=== PATIENT | female | born 1945 | race Caucasian/White ===

== ENCOUNTER 2019-07-05 16:42 | Emergency (ER) | payer MEDICARE, OTHER, SELFPAY ==
[2019-07-05] VITALS (8 sets, daily range): BP systolic 194–214; BP diastolic 68–109; PULSE 54–73; RESP 9–22; TEMP 36.4; O2SAT 97–99
[2019-07-05 17:27] LABS: Add Manual Diff / Slide Review NO; Basophils Absolute Auto 0 /uL (0-100); Basophils Percent Auto 0.6 % (0-2); Eosinophils Absolute Auto 0 /uL (0-450); Eosinophils Percent Auto 0.8 % (2-4); Hematocrit 40.6 % (36-46); Hemoglobin 13.5 g/dL (12.0-16.0); Lymphocytes Absolute Auto 1600 /uL (1100-4500); Lymphocytes Percent Auto 25.6 % (25-40); Mean Corpuscular HGB Conc 33.2 % (30-36); Mean Corpuscular Hemoglobin 30.2 PG (26-34); Monocytes Absolute Auto 600 /uL (0-900); Monocytes Percent Auto 9.4 % (3-14); Neutrophils Absolute Auto 3900 /uL (1500-7000); Neutrophils Percent Auto 63.6 % (50-75); Platelet Count 284 X10^3/uL (150-400); Red Blood Cell Count 4.46 X10^6/uL (4.0-5.2); Red Cell Distribution Width 14.2 % (11.6-14.8); White Blood Cell Count 6.2 X10^3/uL (4.5-11.0)
[2019-07-05 17:41] LABS: Alanine Aminotransferase 13 IU/L (9-52); Albumin 4.3 g/dL (3.5-5.0); Albumin Globulin Ratio 1.3 (1.0-2.8); Alkaline Phosphatase 59 U/L (38-126); Aspartate Aminotransferase 28 IU/L (14-36); BUN Creatinine Ratio 17.5 (6-22); Bilirubin Total 0.4 mg/dL (0.2-1.3); Blood Urea Nitrogen 14 mg/dL (7-17); Calcium 9.6 mg/dL (8.4-10.2); Carbon Dioxide 29 mmol/L (22-32); Chloride 105 mmol/L (98-107); Estimated Glomerular Filt Rate > 60.0 mL/min (>60); Globulin 3.4 g/dL (1.7-4.1); Glucose 108 mg/dL (80-110); HEMOLYSIS < 15 (0-50); Potassium 4.5 mmol/L (3.4-5.1); Sodium 142 mmol/L (137-145); Total Protein 7.7 g/dL (6.3-8.2)
[2019-07-05 17:52] LABS: Troponin I < 0.012 ng/mL (0.01-0.034)
--- NOTE | 2019-07-05 18:43 | ED_ITS ---
HPI - General Adult General Chief complaint: Hypertension Stated complaint: high blood pressure Time Seen by Provider: 07/05/19 17:21 Source: patient Mode of arrival: Ambulatory Limitations: no limitations History of Present Illness HPI narrative: 74-year-old female nonsmoker with relatively benign medical history presents at the request of EMS for evaluation of an episode of lower leg numbness. She reports a prior history of hypertension and had been encouraged to take medications years ago but never did, instead she took aspirin. Earlier today she was cooking in the kitchen when she felt her legs become numb, she reports that earlier in the day she had a brief episode of some chest pressure but denies any other neurologic symptoms such as other numbness, tingling or weakness. She denies any blurred vision or trouble with speech. She denies any current chest pain or shortness of breath nor any abdominal pain. EMS came to evaluate noted her blood pressure to be in the 200s and recommended transport, she refused and elected to come POV. She denies any ongoing symptoms at her arrival. Onset (ago): hour(s) Severity: moderate Quality: aching Pain Consistency: now resolved Relieving factors: none Exacerbating factors: none Associated symptoms: denies other symptoms Treatments prior to arrival: none Related Data Previous Rx's Medication Instructions Recorded lisinopril 20 mg PO DAILY #30 tab 07/05/19 Review of Systems Constitutional Constitutional: Denies chills, Denies fatigue, Denies fever(s), Denies frequent falls, Denies lethargy and Denies weakness Eyes Eyes: Denies change in vision, Denies eye discharge, Denies irritation and Denies loss of vision ENT Ears, Nose, Mouth, and Throat: Denies change in voice, Denies dizziness, Denies neck pain, Denies sore throat and Denies throat swelling Cardiovascular Cardiovascular: Reports chest pain, Denies irregular heart rhythm, Denies lightheadedness, Denies palpitations, Denies dyspnea, Denies dyspnea on exertion and Denies orthopnea Respiratory Respiratory: Denies cough, Denies dyspnea, Denies dyspnea on exertion and Denies wheezing Gastrointestinal Gastrointestinal: Denies abdominal pain, Denies change in bowel habits, Denies diarrhea, Denies nausea and Denies vomiting Genitourinary Genitourinary: Denies hematuria, Denies flank pain, Denies urinary incontinence and Denies urinary urgency Musculoskeletal Musculoskeletal: Denies back pain, Denies muscle weakness, Denies neck pain, Denies numbness and Reports tingling Integumentary/Breasts Skin/Breast: Denies pruritus, Denies erythema, Denies rash and Denies wounds Neurologic Neurologic: Denies behavioral changes, Denies confusion, Denies dizziness, Den ies frequent falls, Denies loss of vision, Denies numbness, Reports tingling and Denies weakness Psychiatric Psychiatric: Denies anxiety, Denies behavioral changes, Denies confusion, Denies depression, Denies homicidal ideation and Denies suicidal ideation Endocrine Endocrine: Denies fatigue, Denies flushing and Denies palpitations Hematologic/Lymphatic Hematologic/Lymphatic: Denies easy bruising Allergic/Immunologic Allergic/Immunologic: Denies urticaria, Denies throat swelling and Denies wheezing Exam Narrative Exam Narrative: GENERAL: [74] year old patient appears stated age. Well-nouris hed, well-developed patient, in mild distress. HEAD: Atraumatic. Normocephalic. EYES: Pupils equal round and reactive. Extraocular motions intact. No scleral icterus. No injection or drainage. ENT: Nose without bleeding, purulent drainage. Throat without erythema, tonsillar hypertrophy or exudate. Airway patent. NECK: Trachea midline. Non tender CARDIOVASCULAR: Regular rate and rhythm without murmurs, gallops, or rubs. RESPIRATORY: Clear to auscultation. Breath sounds equal bilaterally. No wheezes, rales, or rhonchi. GASTROINTESTINAL: Abdomen soft, non-tender, nondistended. EXTREMITIES: No edema or joint tenderness. BACK: Nontender without deformity or crepitance. No flank tenderness. NEURO: AOx3. SKIN: No rash or erythema of visible areas NIH Stroke Scale 1a. LOC: Patient is alert and keenly responsive (0) 1b. LOC Questions: Patient answers both LOC questions accurately (0) 1c. LOC Commands: Patient performs both tasks correctly (0) 2. Best Gaze: Normal (0) 3. Visual: No visual loss (0) 4. Facial palsy: Normal symmetrical movements (0) 5. Motor arm: No drift (0) 6. Motor leg: No drift (0) 7. Limb ataxia: Absent (0) 8. Sensory: Normal (0) 9. Best language: No aphasia; normal (0) 10. Dysarthria: Normal (0) 11. Extinction and inattention: No abnormality (0) NIHSS: 0 Initial Vital Signs Initial Vital Signs: Vital Signs Temperature 97.6 F 07/05/19 16:55 Pulse Rate 73 07/05/19 16:55 Respiratory Rate 22 07/05/19 16:55 Blood Pressure 194/109 H 07/05/19 16:55 Pulse Oximetry 99 07/05/19 16:55 Course Course Course Narrative: Patient here for multiple hours and completely absent of symptoms at any time. Her blood pressure remained in the 190s for the duration. We had extensive discussion with the patient and though there is no lab evidence of end-organ damage and no ongoing symptoms the fact that her pressure remains elevated and her symptoms earlier were likely related to blood pressures suggest it is reasonable to initiate antihypertensive therapy. Lisinopril chosen given her low heart rate, beta blockers and calcium channel blockers cl early not a good choice at this point in time. Orders Ordered: ED Orders 07/05/19 17:05 EKG-12 Lead Stat 07/05/19 17:21 Complete Blood Count AUTO DIFF Stat Comprehensive Metabolic Panel Stat Free T4 Free Thyroxine Stat Thyroid Stimulating Hormone Stat Troponin I Stat Discontinued Medications Lisinopril (Zestril) 10 mg PO NOW ONE Stop: 07/05/19 18:55 Last Admin: 07/05/19 19:12 Dose: 10 mg Documented by: PRIYA Vital Signs Vital signs: Vital Signs - 8 hr 07/05/19 17:30 07/05/19 18:02 07/05/19 19:01 Pulse Rate 54 L 55 L 60 Respiratory Rate 9 L 10 L 16 Blood Pressure Blood Pressure [Left Arm] 196/76 H 195/79 H 199/75 H Pulse Oximetry 97 07/05/19 19:12 07/05/19 19:30 07/05/19 20:00 Pulse Rate 63 64 54 L Respiratory Rate 15 11 L Blood Pressure 202/81 H Blood Pressure [Left Arm] 198/86 H 214/78 H Pulse Oximetry 07/05/19 20:38 Pulse Rate 61 Respiratory Rate 15 Blood Pressure Blood Pressure [Left Arm] 208/68 H Pulse Oximetry Medical Decision Making Lab Data Result diagrams: 07/05/19 17:21 07/05/19 17:21 Labs: Lab Results 07/05/19 07/05/19 07/05/19 Range/Units 17:21 17:21 17:21 WBC 6.2 (4.5-11.0) X10^3/uL RBC 4.46 (4.0-5.2) X10^6/uL Hgb 13.5 (12.0-16.0) g/dL Hct 40.6 (36-46) % MCV 91.0 (80-100) fL MCH 30.2 (26-34) PG MCHC 33.2 (30-36) % RDW 14.2 (11.6-14.8) % Plt Count 284 (150-400) X10^3/uL Neut % (Auto) 63.6 (50-75) % Lymph % (Auto) 25.6 (25-40) % [place] % (Auto) 9.4 (3-14) % Eos % (Auto) 0.8 L (2-4) % Baso % (Auto) 0.6 (0-2) % Neut # (Auto) 3900 (7661-2509) /uL Lymph # (Auto) 1600 (0907-9705) /uL [place] # (Auto) 600 (0-900) /uL Eos # (Auto) 0 (0-450) /uL Baso # (Auto) 0 (0-100) /uL Sodium 142 (137-145) mmol/L Potassium 4.5 (3.4-5.1) mmol/L Chloride 105 (98-107) mmol/L Carbon Dioxide 29 (22-32) mmol/L BUN 14 (7-17) mg/dL Creatinine 0.80 (0.52-1.04) mg/dL Estimated GFR > 60.0 (>60) mL/min BUN/Creatinine Ratio 17.5 (6-22) Glucose 108 (80-110) mg/dL Calcium 9.6 (8.4-10.2) mg/dL Total Bilirubin 0.4 (0.2-1.3) mg/dL AST 28 (14-36) IU/L ALT 13 (9-52) IU/L Alkaline Phosphatase 59 (38-126) U/L Troponin I < 0.012 (0.01-0.034) ng/mL Total Protein 7.7 (6.3-8.2) g/dL Albumin 4.3 (3.5-5.0) g/dL Globulin 3.4 (1.7-4.1) g/dL Albumin/Globulin Ratio 1.3 (1.0-2.8) TSH 2.61 (0.47-4.68) uIU/mL Urine Dip Bedside Urine Glucose Negative Bedside Urine Bilirubin - Negative Bedside Urine Ketone - Negative Urine Specific Smoot 1.010 Bedside Urine Occult Blood - Negative Bedside Urine pH 6.0 Bedside Urine Protein - Negative Bedside Urine Urobilinogen - Negative Bedside Urine Nitrite - Negative Bedside Urine Leukocytes - Negative Esterase Point of care testing: Urine Dip Bedside Urine Glucose Negative Bedside Urine Bilirubin - Negative Bedside Urine Ketone - Negative Urine Specific Smoot 1.010 Bedside Urine Occult Blood - Negative Bedside Urine pH 6.0 Bedside Urine Protein - Negative Bedside Urine Urobilinogen - Negative Bedside Urine Nitrite - Negative Bedside Urine Leukocytes - Negative Esterase Discharge Plan Departure Patient Disposition: Home Clinical Impression: Hypertension Discharge Date/Time: 07/05/19 21:03 Instructions: DI for High Blood Pressure Activity Restrictions/Additional Instructions: *You have been diagnosed with [hypertension] *What to do: *Take medications as directed *Follow up with your primary care provider in 2-3 days, call for an appointment. Let them know you were seen in the Emergency Department and that we ask that you be seen in follow up *Return to ER if you should have any new, worsening or concerning symptoms, such as [blurred vision, headache, stroke-like symptoms such as numbness, tingling or weakness, chest pain, shortness of breath or other bothersome symptoms] Prescriptions: New lisinopril 20 mg tablet 20 mg PO DAILY Qty: 30 RF: 0
[2019-07-05] MEDS: LISINOPRIL 10 MG TABLET PO (19:12)
[2019-07-05 19:53] LABS: Thyroid Stimulating Hormone 2.61 uIU/mL (0.47-4.68)
[2019-07-06 14:44] LABS: Free T4, Direct Thyroxine 1.18 ng/dL (0.78-2.19)
== END 2019-07-05 21:03 | disposition home or self-care (01) ==
PROVIDERS: Emergency Medicine; Emergency Provider Emergency Medicine
DX: I10 Essential (primary) hypertension (principal)
CPT/HCPCS: 36415; 80053; 81003; 84439; 84443; 84484; 85025; 93005; 99283; 99284

== ENCOUNTER 2019-08-05 14:05 | Emergency (ER) | payer MEDICARE, OTHER, SELFPAY ==
[2019-08-05 14:15] VITALS: BP 186/94; PULSE 87; RESP 94; TEMP 36.8; O2SAT 97; BMI 41.9
--- NOTE | 2019-08-05 14:29 | ED_ITS ---
HPI - Extremity Problem General Chief complaint: Extremity Problem,Nontraumatic Stated complaint: Issue with legs going numb Time Seen by Provider: 08/05/19 14:10 Source: patient Mode of arrival: Ambulatory Limitations: no limitations History of Present Illness HPI Narrative: 74F nonsmoker with history of HTN presents with her and a chief complaint of of 5 minutes episode of bilateral lower extremity numbness. She denies any weakness nor pain and states she can still feel her feet. She was not dizzy nor lightheaded. She denies any other neurologic symptoms such as blurred vision, trouble with speech or difficulty with ambulation or ataxia. She had a similar episode a few weeks ago at which point her blood pressure was noted to be quite high, she was initiated on lisinopril and in followup started on amlodipine. Patient has had no other similar episodes. She was standing in the kitchen when this happened and it improved without any specific therapies or interventions MD Complaint: other Onset (ago): hour(s) Pain Consistency: now resolved Location: left, right and lower extremity Radiation: none Relieving factors: nothing Exacerbating factors: nothing Related Data Previous Rx's Medication Instructions Recorded lisinopril 20 mg PO DAILY #30 tab 07/05/19 Allergies Allergy/AdvReac Type Severity Reaction Status Date / Time Penicillins Allergy Verified 08/05/19 14:13 Review of Systems Constitutional Constitutional: Denies chills, Denies fatigue, Denies fever(s), Denies frequent falls, Denies lethargy and Denies weakness Eyes Eyes: Denies change in vision, Denies eye discharge, Denies irritation and Denies loss of vision ENT Ears, Nose, Mouth, and Throat: Denies change in voice, Denies dizziness, Denies neck pain, Denies sore throat and Denies throat swelling Cardiovascular Cardiovascular: Denies chest pain, Denies irregular heart rhythm, Denies l ightheadedness, Denies palpitations, Denies dyspnea, Denies dyspnea on exertion and Denies orthopnea Respiratory Respiratory: Denies cough, Denies dyspnea, Denies dyspnea on exertion and Denies wheezing Gastrointestinal Gastrointestinal: Denies abdominal pain, Denies change in bowel habits, Denies diarrhea, Denies nausea and Denies vomiting Genitourinary Genitourinary: Denies hematuria, Denies flank pain, Denies urinary incontinence and Denies urinary urgency Musculoskeletal Musculoskeletal: Denies back pain, Denies muscle weakness, Denies neck pain, Denies numbness and Denies tingling Integumentary/Breasts Skin/Breast: Denies pruritus, Denies erythema, Denies rash and Denies wounds Neurologic Neurologic: Denies behavioral changes, Denies confusion, Denies dizziness, Denies frequent falls, Denies loss of vision, Denies numbness, Denies tingling, Reports paresthesias and Denies weakness Psychiatric Psychiatric: Denies anxiety, Denies behavioral changes, Denies confusion, Denies depression, Denies homicidal ideation and Denies suicidal ideation Endocrine Endocrine: Denies fatigue, Denies flushing and Denies palpitations Hematologic/Lymphatic Hematologic/Lymphatic: Denies easy bruising Allergic/Immunologic Allergic/Immunologic: Denies urticaria, Denies throat swelling and Denies wheezing Patient History Social History Smoking Status: Never smoker alcohol intake frequency: holidays/special occasions only Substance Use Type: does not use Exam Narrative Exam Narrative: GENERAL: [74] year old patient appears stated age. Well- nourished, well-developed patient, in mild distress. HEAD: Atraumatic. Normocephalic. EYES: Pupils equal round and reactive. Extraocular motions intact. No scleral icterus. No injection or drainage. ENT: Nose without bleeding, purulent drainage. Throat without erythema, tonsillar hypertrophy or exudate. Airway patent. NECK: Trachea midline. Non tender CARDIOVASCULAR: Regular rate and rhythm without murmurs, gallops, or rubs. RESPIRATORY: Clear to auscultation. Breath sounds equal bilaterally. No wheezes, rales, or rhonchi. GASTROINTESTINAL: Abdomen soft, non-tender, nondistended. EXTREMITIES: No edema or joint tenderness. BACK: Nontender without deformity or crepitance. No flank tenderness. NEURO: AOx3. SKIN: No rash or erythema of visible areas NIH Stroke Scale 1a. LOC: Patient is alert and keenly responsive (0) 1b. LOC Questions: Patient answers both LOC questions accurately (0) 1c. LOC Commands: Patient performs both tasks correctly (0) 2. Best Gaze: Normal (0) 3. Visual: No visual loss (0) 4. Facial palsy: Normal symmetrical movements (0) 5. Motor arm: No drift (0) 6. Motor leg: No drift (0) 7. Limb ataxia: Absent (0) 8. Sensory: Normal (0) 9. Best language: No aphasia; normal (0) 10. Dysarthria: Normal (0) 11. Extinction and inattention: No abnormality (0) NIHSS: 0 Initial Vital Signs Initial Vital Signs: Vital Signs Temperature 98.3 F 08/05/19 14:15 Pulse Rate 87 08/05/19 14:15 Respiratory Rate 94 H 08/05/19 14:15 Blood Pressure 186/94 H 08/05/19 14:15 Pulse Oximetry 97 08/05/19 14:15 Course Orders Ordered: ED Orders 08/05/19 14:42 CT head/brain wo con Stat 08/05/19 15:22 Basic Metabolic Panel Stat Complete Blood Count AUTO DIFF Stat Magnesium Stat Troponin & CK Cardiac Panel Stat Vital Signs Vital signs: Vital Signs - 8 hr 08/05/19 14:15 08/05/19 14:44 Temperature 98.3 F Pulse Rate 87 65 Respiratory Rate 94 H 16 Blood Pressure 186/94 H Blood Pressure [Right Arm] 148/61 H Pulse Oximetry 97 98 MDM - Extremity (Nontraumatic) Lab Data Result diagrams: 08/05/19 15:22 08/05/19 15:22 Labs: Lab Results 08/05/19 08/05/19 Range/Units 15:22 15:22 WBC 5.7 (4.5-11.0) X10^3/uL RBC 4.39 (4.0-5.2) X10^6/uL Hgb 13.2 (12.0-16.0) g/dL Hct 39.8 (36-46) % MCV 90.6 (80-100) fL MCH 30.2 (26-34) PG MCHC 33.3 (30-36) % RDW 14.2 (11.6-14.8) % Plt Count 238 (150-400) X10^3/uL Neut % (Auto) 59.6 (50-75) % Lymph % (Auto) 27.6 (25-40) % [place] % (Auto) 10.9 (3-14) % Eos % (Auto) 1.1 L (2-4) % Baso % (Auto) 0.8 (0-2) % Neut # (Auto) 3400 (9242-9655) /uL Lymph # (Auto) 1600 (3536-2320) /uL [place] # (Auto) 600 (0-900) /uL Eos # (Auto) 100 (0-450) /uL Baso # (Auto) 0 (0-100) /uL Sodium 142 (137-145) mmol/L Potassium 4.6 (3.4-5.1) mmol/L Chloride 108 H (98-107) mmol/L Carbon Dioxide 29 (22-32) mmol/L BUN 13 (7-17) mg/dL Creatinine 0.90 (0.52-1.04) mg/dL Estimated GFR > 60.0 (>60) mL/min BUN/Creatinine Ratio 14.4 (6-22) Glucose 93 (80-110) mg/dL Calcium 9.1 (8.4-10.2) mg/dL Magnesium 2.1 (1.6-2.3) mg/dL Total Creatine Kinase 36 (30-135) U/L CK-MB (CK-2) TNP CK-MB (CK-2) Rel Index TNP Troponin I < 0.012 (0.01-0.034) ng/mL Imaging Data CT scan - head: Radiologist's impression: [address] [address] [address] Scan Report Signed Patient: Anastasia Sharma LMR#: [id number] : 6Acct:[id number] Age/Sex: 74 / FDate of Service: 08/05/19 Loc: ED Accession Number: [id number] Procedure: CT head/brain wo con Ordering Provider: Leighton Laird D.O. PROCEDURE: CT HEAD/BRAIN WO CON INDICATIONS: episode of leg numbness, resolved TECHNIQUE: Noncontrast 4.5 mm thick angled axial sections acquired from the foramen magnum to the vertex, with coronal and sagittal reformats. For radiation dose reduction, the following was used: automated exposure control, adjustment of mA and/or kV according to patient size. COMPARISON: None. FINDINGS: Image quality: Diagnostic. CSF spaces: Basal cisterns are patent. No extra-axial fluid collections. Ventricles are normal in size and shape. Brain: No midline shift. No intracranial masses or hemorrhage. Snyder-white matter interface is normal. A somewhat unusual appearance involving the right basal ganglia, particular the caudate nucleus, which may be related to previous area of ischemia. Skull and face: Calvarium and visualized facial bones are intact, without suspicious lesions. Sinuses: Visualized sinuses and mastoids are clear. IMPRESSION: No acute intracranial hemorrhage. Dictated by: Toi Ricci M.D. on 08/05/2019 at 14:03 Approved by: Toi Ricci M.D. on 08/05/2019 at 14:05 [facility] Narrative Medical decision making narrative: 74F hypertensive female presents with bilateral lower extremity tingling which spares her feet. She denies any focal findings nor any other neurologic findings. Her symptoms improved after about 5 minutes. She had a thorough evaluation and multiple etiologies including electrolyte abnormality, cardiac arrhythmia, stroke all considered but thought less likely given the lack of findings on our evaluation. We did discuss that continuing to follow-up with her primary care provider to pursue the MRI that they had already spoken about seems very realistic as this could shed light on her as yet undiagnosed neurologic problem. She has been given return precautions and had questions answered to her apparent satisfaction Discharge Plan Departure Patient Disposition: Home Clinical Impression: Paresthesia of bilateral legs Discharge Date/Time: 08/05/19 16:03 Activity Restrictions/Additional Instructions: *You have been diagnosed with [acute episode of bilateral lower extremity paresthesia] *What to do: * continue to take medications as directed *Follow up with your primary care provider in 2-3 days, call for an appointment. Let them know you were seen in the Emergency Department and that we ask that you be seen in follow up *Return to ER if you should have any new, worsening or concerning symptoms Prescriptions: No Action lisinopril 20 mg tablet 20 mg PO DAILY Qty: 30 RF: 0 Referrals: Coco Barroso [Primary Care Provider] -
--- NOTE | 2019-08-05 14:42 | DI.CT.S_ITS ---
PROCEDURE: CT HEAD/BRAIN WO CON INDICATIONS: episode of leg numbness, resolved TECHNIQUE: Noncontrast 4.5 mm thick angled axial sections acquired from the foramen magnum to the vertex, with coronal and sagittal reformats. For radiation dose reduction, the following was used: automated exposure control, adjustment of mA and/or kV according to patient size. COMPARISON: None. FINDINGS: Image quality: Diagnostic. CSF spaces: Basal cisterns are patent. No extra-axial fluid collections. Ventricles are normal in size and shape. Brain: No midline shift. No intracranial masses or hemorrhage. Snyder-white matter interface is normal. A somewhat unusual appearance involving the right basal ganglia, particular the caudate nucleus, which may be related to previous area of ischemia. Skull and face: Calvarium and visualized facial bones are intact, without suspicious lesions. Sinuses: Visualized sinuses and mastoids are clear. IMPRESSION: No acute intracranial hemorrhage. Dictated by: Toi Ricci M.D. on 08/05/2019 at 14:03 Approved by: Toi Ricci M.D. on 08/05/2019 at 14:05
--- NOTE | 2019-08-05 14:42 | PC.NURSE ---
pt reports, bilateral lower legs with numbness, lasting couple of minutes. no other tx. pt treated with hypertensions. resolved symptoms on arrival. spouse at bs. neuro [facility] 0
[2019-08-05 14:44] VITALS: BP 148/61; PULSE 65; RESP 16; O2SAT 98
[2019-08-05 15:31] LABS: Add Manual Diff / Slide Review NO; Basophils Absolute Auto 0 /uL (0-100); Basophils Percent Auto 0.8 % (0-2); Eosinophils Absolute Auto 100 /uL (0-450); Eosinophils Percent Auto 1.1 % (2-4); Hematocrit 39.8 % (36-46); Hemoglobin 13.2 g/dL (12.0-16.0); Lymphocytes Absolute Auto 1600 /uL (1100-4500); Lymphocytes Percent Auto 27.6 % (25-40); Mean Corpuscular HGB Conc 33.3 % (30-36); Mean Corpuscular Hemoglobin 30.2 PG (26-34); Mean Corpuscular Volume 90.6 fL (80-100); Monocytes Absolute Auto 600 /uL (0-900); Monocytes Percent Auto 10.9 % (3-14); Neutrophils Absolute Auto 3400 /uL (1500-7000); Neutrophils Percent Auto 59.6 % (50-75); Platelet Count 238 X10^3/uL (150-400); Red Blood Cell Count 4.39 X10^6/uL (4.0-5.2); Red Cell Distribution Width 14.2 % (11.6-14.8); White Blood Cell Count 5.7 X10^3/uL (4.5-11.0)
[2019-08-05 15:40] LABS: BUN Creatinine Ratio 14.4 (6-22); Blood Urea Nitrogen 13 mg/dL (7-17); Calcium 9.1 mg/dL (8.4-10.2); Carbon Dioxide 29 mmol/L (22-32); Chloride 108 mmol/L (98-107); Creatine Kinase 36 U/L (30-135); Estimated Glomerular Filt Rate > 60.0 mL/min (>60); Glucose 93 mg/dL (80-110); HEMOLYSIS < 15 (0-50); Magnesium 2.1 mg/dL (1.6-2.3); Potassium 4.6 mmol/L (3.4-5.1); Sodium 142 mmol/L (137-145)
[2019-08-05 15:51] LABS: Troponin I < 0.012 ng/mL (0.01-0.034)
== END 2019-08-05 16:03 | disposition home or self-care (01) ==
PROVIDERS: Emergency Provider Emergency Medicine; PCP Internal Medicine
DX: R20.2 Paresthesia of skin (principal); R20.0 Anesthesia of skin; I10 Essential (primary) hypertension
CPT/HCPCS: 36415; 70450; 80048; 82550; 83735; 84484; 85025; 99282; 99284

== ENCOUNTER → 2019-09-01 06:18 | Outpatient (CLI) | payer MEDICARE, OTHER, SELFPAY ==
--- NOTE | 2019-09-01 | DI.MRI.S_ITS ---
PROCEDURE: MR LUMBAR SPINE WO/W CON INDICATIONS: Paresthesia of skin TECHNIQUE: Noncontrast sagittal T1 spin echo and T2 fast spin echo, sagittal STIR, axial T1 and T2 fast spin echo through the lumbar spine. In cases with scoliosis, additional coronal T2 fast spin echo may be performed. After the administration of contrast, sagittal and axial T1 spin echo with fat saturation through the lumbar spine. COMPARISON: None. FINDINGS: Image quality: Excellent. Alignment and curvature: There is a transitional element at S1. The numbering system for the current examination is as denoted on the montage panel. Correlation with plain films for numbering purposes prior to lumbar spinal intervention is recommended. Marrow: Marrow is of normal overall signal. No acute vertebral body compression fractures. No suspicious marrow enhancement. Spinal cord: Conus medullaris terminates at the mid L2 level. Visualized spinal cord demonstrates normal signal, without suspicious enhancement. Paraspinous soft tissues: No paravertebral masses or abnormal enhancement. L1-L2: Normal appearance. L2-L3: Mild disc desiccation. Mild diffuse disc bulge. Minimal canal stenosis. No foraminal stenosis. L3-L4: Mild disc desiccation. Mild diffuse disc bulge. Mild facet and ligamentum flavum hypertrophy. Mild canal stenosis. No foraminal stenosis. L4-L5: Mild disc desiccation. Mild diffuse disc bulge. Minimal canal stenosis. Mild bilateral foraminal stenosis. L5-S1: Mild disc desiccation. Mild diffuse disc bulge. Mild bilateral facet hypertrophy. Mild canal stenosis. Moderate bilateral subarticular foraminal stenosis. IMPRESSION: 1. 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 Plain films of the lumbar spine are recommended for confirmation, prior to any lumbar spinal intervention. 2. Multilevel degenerative disc and facet disease, as well as ligamentum flavum hypertrophy and epidural lipomatosis. 3. Mild multilevel canal stenoses. 4. Multilevel foraminal stenoses, worst at L5-S1 bilaterally where there are moderate foraminal stenoses present. Dictated by: Keenan Cummings M.D. on 09/01/2019 at 9:33 Approved by: Keenan Cummings M.D. on 09/01/2019 at 9:37
== END ==
PROVIDERS: PCP Internal Medicine; Visit Provider Internal Medicine
DX: M51.36 Other intervertebral disc degeneration, lumbar region (principal); M48.061 Spinal stenosis, lumbar region without neurogenic claudication; M48.07 Spinal stenosis, lumbosacral region; E88.2 Lipomatosis, not elsewhere classified; R20.2 Paresthesia of skin
CPT/HCPCS: 72158; A9579

== ENCOUNTER → 2023-07-29 14:28 | Outpatient (CLI) | payer MEDICARE, OTHER, SELFPAY ==
--- NOTE | 2023-07-29 14:31 | DI.RAD.S_ITS ---
Bone Density Report Name: CAREY HINDS Age: 78 Sex: Female Ethnicity: White Date of : 1945 Indication: postmenopausal; screening for osteoporosis; Referring Provider: DARNELL RENEE D.O. Study: Bone densitometry was performed. Exam Date: July 29, 2023 Accession number: [id number] Bone Density: Region BMD T-score Z-score Classification AP Spine(L1-L4) 1.096 0.4 3.0 Normal Femoral Neck (Left) 0.787 -0.6 1.6 Normal Total Hip (Left) 1.024 0.7 2.6 Normal Femoral Neck (Right) 0.759 -0.8 1.4 Normal Total Hip (Right) 0.977 0.3 2.2 Normal Total Hip Mean 1.001 0.5 2.4 Normal World Health Organization criteria for BMD impression classify patients as: Normal (T-score at or above -1.0), Osteopenia (T-score between -1.0 and -2.5), or Osteoporosis (T-score at or below -2.5). 10-year Fracture Risk: FRAX not reported because: All T-scores for Spine Total, Hip Total, Femoral Neck at or above -1.0 Impression: The patient has normal bone mass. Discussion: BONE DENSITY IS ABOVE THE MINIMUM DESIRABLE LEVEL AT ALL SKELETAL SITES TESTED. This patient's bone mineral density is above the minimum desirable level (T-score -1.0 or better) at all sites measured. The patient should follow a healthful lifestyle (good nutrition with adequate calcium and vitamin D, and appropriate weight-bearing exercise). Follow-Up: Consider repeating this study in 5 years or sooner if there is some new clinical indication. Reported by: GUNNER PLASCENCIA M.D. on 07/29/2023 3:08:00 PM.
== END ==
PROVIDERS: PCP Family Medicine; Referring Provider Family Medicine; Visit Provider Family Medicine
DX: Z78.0 Asymptomatic menopausal state (principal)
CPT/HCPCS: 77080

== ENCOUNTER 2023-12-02 02:21 | Emergency (ER) | payer MEDICARE, OTHER, SELFPAY ==
[2023-12-02 02:28] VITALS: BP 239/105; PULSE 77; RESP 18; O2SAT 97
[2023-12-02 02:33] VITALS: BP 239/105; PULSE 76; RESP 18; TEMP 37; O2SAT 96; BMI 37.5
--- NOTE | 2023-12-02 02:38 | ED.EXTPRO ---
HPI - Extremity Problem General Chief complaint: Extremity Problem,Nontraumatic Stated complaint: RT ARM PAIN Time Seen by Provider: 12/02/23 02:23 Source: patient and family Mode of arrival: Wheelchair History of Present Illness HPI Narrative: 78-year-old female presents by private vehicle from home for approximately 8 hours progressive atraumatic right shoulder pain. Patient states that she needs the pain around 6:00 p.m. and it has gradually worsened. She was unable to find a comfortable position or sleep due to the pain and decided to present for evaluation. Denies known accident, injury, trauma to the affected joint. Related Data Previous Rx's Medication Instructions Recorded lisinopril 20 mg tablet 20 mg PO DAILY #30 tabs 07/05/19 Allergies Allergy/AdvReac Type Severity Reaction Status Date / Time Penicillins Allergy Verified 08/05/19 14:13 Review of Systems Review of Systems Narrative: Negative except as noted above Patient History Social History Smoking Status: Never smoker Smoking Status: Never smoker alcohol intake frequency: holidays/special occasions only Substance Use Type: does not use Exam Initial Vital Signs Initial Vital Signs: Vital Signs Temperature 98.6 F 12/02/23 02:33 Pulse Rate 76 12/02/23 02:33 Respiratory Rate 18 12/02/23 02:33 Blood Pressure 239/105 H 12/02/23 02:33 Pulse Oximetry 96 12/02/23 02:33 Oxygen Delivery Method Room Air 12/02/23 02:33 Const: Awake, alert, no acute distress MSK: Atraumatic, ROM limited due to pain, tenderness along AC joint, posterior shoulder Skin: Warm, Dry, intact, no rashes Neuro: AO x3, CN II-XII grossly intact, moves all extremities Course Orders Ordered: ED Orders 12/02/23 02:40 XR shoulder RT min 2V Stat Discontinued Medications Hydrocodone Bitart/Acetaminophen (Hydrocodone/Acet 5/325 Tablet) 1 tab PO NOW ONE Stop: 12/02/23 02:38 Last Admin: 12/02/23 02:51 Dose: 1 tab Documented By: CEZAR Lidocaine (Lidocaine 5% Patch) 1 each TOP NOW ONE Stop: 12/02/23 02:38 Last Admin: 12/02/23 02:50 Dose: 1 each Documented By: CEZAR Methocarbamol (Methocarbamol 500 Mg Tablet) 750 mg PO NOW ONE Stop: 12/02/23 02:38 Last Admin: 12/02/23 02:50 Dose: 750 mg Documented By: OW Vital Signs Vital signs: Vital Signs - 8 hr 12/02/23 02:33 Temperature 98.6 F Pulse Rate 76 Respiratory Rate 18 Blood Pressure 239/105 H Pulse Oximetry 96 Oxygen Delivery Method Room Air MDM - Extremity (Nontraumatic) Differential Diagnosis Differential diagnosis: Likely herpes zoster, gout and cellulitis MDM Narrative Medical decision making narrative: Atraumatic right shoulder joint pain. No deformity, shoulders particularly painful over the anterior portion of the shoulder. Suspect rotator cuff tendinopathy. Range of motion limited due to pain. X-rays negative for acute findings. Mild degenerative change noted without lesions, fracture, dislocation. Patient placed in sling for comfort, advised that she may take anti-inflammatories and Tylenol as needed for pain or discomfort. Recommended application of ice as well as lidocaine or menthol patches for comfort. Orthopedic referral provided. Discharge Plan Departure Patient Disposition: Home Clinical Impression: Acute shoulder pain Qualifiers: Laterality: right Qualified Code(s): M25.511 - Pain in right shoulder Instructions: DI for Shoulder Tendinopathy Activity Restrictions/Additional Instructions: You may take Tylenol and ibuprofen as needed for pain. Take ibuprofen with food to avoid irritating your stomach. You may wear the sling as needed for comfort. Follow up with orthopedic surgery if you continue to experience symptoms. Prescriptions: No Action lisinopril 20 mg tablet 20 mg PO DAILY Qty: 30 0RF Referrals: Roque Will DO [Primary Care Provider] - Chano Burton MD [Physician] - Stand Alone Forms: Patient Portal/API
--- NOTE | 2023-12-02 02:40 | DI.RAD.S_ITS ---
PROCEDURE: XR SHOULDER RT MIN 2V INDICATIONS: R SHOULDER PAIN, NO INJURY TECHNIQUE: 3 views of the shoulder were acquired. COMPARISON: None. FINDINGS: Bones: No fractures or dislocations. No suspicious bony lesions. Visualized ribs appear intact. Acromioclavicular joint space narrowing with osteophytosis. Soft tissues: No suspicious soft tissue calcifications. IMPRESSION: No acute bony abnormality. Dictated by: Esequiel Chiu M.D. on 12/02/2023 at 8:22 Approved by: Esequiel Chiu M.D. on 12/02/2023 at 8:23
[2023-12-02] MEDS: methocarbamoL 500 MG TABLET 750 MG PO (02:50)
[2023-12-02] MEDS: LIDOCAINE 5% PATCH 1 EACH TOP (02:50)
[2023-12-02] MEDS: HYDROCODONE/ACET 5/325 TABLET 1 TAB PO (02:51)
[2023-12-02 03:19] VITALS: BP 229/91; PULSE 76; RESP 18; O2SAT 99
[2023-12-02] MEDS: TRAMADOL 50 MG TABLET PO (03:59)
[2023-12-02] MEDS: TRAMADOL 50 MG PREPACK 1 BOTTLE MISC (03:59)
[2023-12-02 04:01] VITALS: BP 212/91; PULSE 76; RESP 20; O2SAT 98
== END 2023-12-02 04:28 | disposition home or self-care (01) ==
PROVIDERS: Emergency Provider Emergency Medicine; PCP Family Medicine
DX: M25.511 Pain in right shoulder (principal)
CPT/HCPCS: 73030; 99283

== ENCOUNTER → 2023-12-22 13:19 | Outpatient (CLI) | payer MEDICARE, OTHER, SELFPAY ==
--- NOTE | 2023-12-22 13:24 | DI.MRI.S_ITS ---
PROCEDURE: MR SHOULDER RT WO CON INDICATIONS: Pain in right shoulder TECHNIQUE: Noncontrast oblique coronal T2 fast spin echo with fat saturation, oblique sagittal T1 spin echo and T2 fast spin echo with fat saturation, axial T1 spin echo and T2 fast spin echo with fat saturation through the shoulder. COMPARISON: None. FINDINGS: Image quality: Excellent. Rotator cuff: Low to moderate grade articular and bursal surface partial thickness tear involving distal supraspinatus at its insertion on the humeral head is seen extending to musculotendinous junction. Distal infraspinatus tendinosis is seen. The subscapularis tendon is intact. No full-thickness rotator cuff tendon rupture. Sagittal images demonstrate mild to moderate supraspinatus muscle atrophy. Bones and bursae: No bone marrow contusions or fractures. Mild to moderate acromioclavicular joint osteoarthritic changes are seen with joint space narrowing and downward osteophyte formation depressing the musculotendinous junction of supraspinatus. The acromion demonstrates conventional anatomy, without an os acromiale. There is moderate joint effusion and subacromial subdeltoid bursal fluid, no gross loose bodies. Capsule and soft tissues: There is fraying of superior anterior labrum and T2 hyperintense signal at 12 to 2 o'clock position concerning for superior anterior labral tear. There is also suggestion of anterior-inferior labral tear with adjacent 5-6 millimeter perilabral cyst at 5 to 6 o'clock position. The long head of the biceps tendon demonstrates normal location and morphology. The rotator interval appears normal, without fibrosis. The coracohumeral ligament is normal in thickness. IMPRESSION: 1. Low to moderate grade articular and bursal surface partial thickness tear involving distal supraspinatus extending to musculotendinous junction. Distal infraspinatus tendinosis. No full-thickness rotator cuff tendon rupture. Mild to moderate supraspinatus muscle atrophy. 2. Tzri-bt-pjowpira acromioclavicular joint osteoarthritis. No fracture or dislocation. Moderate joint effusion and subacromial subdeltoid bursal fluid. No gross loose bodies. 3. Suggestion of superior anterior labral tear at 12 to 2 o'clock position and anterior-inferior labral tear at 5 to 6 o'clock position with adjacent 5-6 mm perilabral cysts. Dictated by: Michael Canales M.D. on 12/23/2023 at 10:41 Approved by: Michael Canales M.D. on 12/23/2023 at 10:45
[2023-12-22 14:27] LABS: Add Manual Diff / Slide Review NO; Basophils Absolute Auto 0 /uL (0-100); Basophils Percent Auto 0.5 % (0-2); Eosinophils Absolute Auto 0 /uL (0-450); Eosinophils Percent Auto 0.5 % (2-4); Hematocrit 38.5 % (36-46); Lymphocytes Absolute Auto 1600 /uL (1100-4500); Lymphocytes Percent Auto 31.6 % (25-40); Mean Corpuscular HGB Conc 33.7 % (30-36); Mean Corpuscular Hemoglobin 30.1 PG (26-34); Mean Corpuscular Volume 89.5 fL (80-100); Monocytes Absolute Auto 700 /uL (0-900); Monocytes Percent Auto 13.3 % (3-14); Neutrophils Absolute Auto 2800 /uL (1500-7000); Neutrophils Percent Auto 54.1 % (50-75); Platelet Count 324 X10^3/uL (150-400); Red Blood Cell Count 4.31 X10^6/uL (4.0-5.2); Red Cell Distribution Width 13.8 % (11.6-14.8); White Blood Cell Count 5.2 X10^3/uL (4.5-11.0)
[2023-12-22 14:34] LABS: Hemoglobin A1C% w Est Avg Glu 5.7 % (4.0-6.0)
[2023-12-22 14:40] LABS: BUN Creatinine Ratio 22.1 (6-22); Blood Urea Nitrogen 19 mg/dL (7-17); Calcium 9.1 mg/dL (8.4-10.2); Carbon Dioxide 26 mmol/L (22-32); Chloride 96 mmol/L (98-107); Estimated Glomerular Filt Rate > 60 mL/min (>60); Glucose 96 mg/dL (80-110); HEMOLYSIS < 15 (0-50); Potassium 3.7 mmol/L (3.4-5.1); Sodium 129 mmol/L (137-145)
[2023-12-22 15:35] LABS: Appearance Urine UA CLEAR; Bilirubin Urine UA NEGATIVE (NEGATIVE); Color Urine UA YELLOW; Glucose Urine UA NEGATIVE (Negative); Ketones Urine UA NEGATIVE (NEGATIVE); Leukocyte Esterase Urine UA TRACE (NEGATIVE); Nitrite Urine UA NEGATIVE (Negative); Occult Blood Urine UA NEGATIVE (Negative); Protein Urine UA NEGATIVE (Negative); Urobilinogen Urine UA 0.2 E.U./dL (0.2)
[2023-12-22 15:36] LABS: pH Urine UA 5.5 (4.5-8.0)
[2023-12-22 15:41] LABS: Bacteria Urine Occasional (0-1); Culture Indicated Urine Specimen Cultured; Mucus Urine 1+ (Negative); RBC Urine 0-1/HPF (0-5/HPF); Squamous Epithelial Cell Urine 10-30 /HPF (0-5/HPF); Urine Volume 10mL (spun); WBC Urine 1-5/HPF (0-5/HPF)
== END ==
PROVIDERS: Orthopaedic Surgery; PCP Family Medicine; Referring Provider Family Medicine; Visit Provider Family Medicine
DX: Z01.818 Encounter for other preprocedural examination (principal); M62.511 Muscle wasting and atrophy, not elsewhere classified, right shoulder; Z01.812 Encounter for preprocedural laboratory examination; M19.011 Primary osteoarthritis, right shoulder; S46.011A Strain of muscle(s) and tendon(s) of the rotator cuff of right shoulder, initial encounter; M25.511 Pain in right shoulder; R73.9 Hyperglycemia, unspecified; N39.0 Urinary tract infection, site not specified; W19.XXXA Unspecified fall, initial encounter
CPT/HCPCS: 36415; 73221; 80048; 81001; 83036; 85025; 87086; 93005; 93010

== ENCOUNTER 2024-02-29 08:51 | Day surgery (SDC) | payer MEDICARE, OTHER, SELFPAY ==
[2024-02-21 12:50] VITALS: BMI 37.5
[2024-02-29] VITALS (12 sets, daily range): BP systolic 124–162; BP diastolic 66–80; PULSE 54–71; RESP 11–18; TEMP 36.1–37; O2SAT 95–100; BMI 37.9
--- NOTE | 2024-02-29 | DI.RAD.S_ITS ---
PROCEDURE: XR HIP W PEL IF DONE RT 2V INDICATIONS: POST OP RIGHT HIP TECHNIQUE: AP pelvis and lateral view of the hip acquired. COMPARISON: [facility], [place], XR PELVIS 1-2V, 02/29/2024, 12:00. FINDINGS: Bones: Patient is status post right total hip arthroplasty, with hardware components in expected positions. The hip joint appears congruent. The visualized bony structures appear intact. Soft tissues: Overlying postoperative changes are noted. No suspicious soft tissue densities. IMPRESSION: Expected post-operative appearance of a hip arthroplasty. Approved by: César Olmedo M.D. on 02/29/2024 at 14:18
--- NOTE | 2024-02-29 06:00 | DI.RAD.S_ITS ---
PROCEDURE: XR PELVIS 1-2V INDICATIONS: right RIVERA TECHNIQUE: Intra-operative view of the pelvis and hip acquired. COMPARISON: None. FINDINGS: Bones: Intraoperative devices prior to placement of arthroplasty prostheses are in expected positions. No fractures or suspicious bony lesions. Soft tissues: Overlying surgical retractors are present, along with other intraoperative changes. IMPRESSION: Expected position of the intraoperative devices. Dictated by: Esequiel Chiu M.D. on 02/29/2024 at 13:59 Approved by: Esequiel Chiu M.D. on 02/29/2024 at 13:59
[2024-02-29] MEDS: ACETAMINOPHEN 325 MG TABLET 975 MG PO (10:09)
[2024-02-29] MEDS: CELECOXIB 200 MG CAPSULE PO (10:09)
[2024-02-29] MEDS: LACTATED RINGERS 1,000 ML 42 ML IV (10:10)
[2024-02-29] MEDS: VANCOMYCIN 1,000 MG/200 ML PIGGYBACK 200 MG IV (10:18)
--- NOTE | 2024-02-29 10:45 | PM.PREOP ---
Pre-operative Note Interval Note History & Physical reviewed/Exam performed by Physician: Yes Changes to H&P: No
--- NOTE | 2024-02-29 10:46 | PM.OP.1 ---
Operative Date/Time/Diagnoses Date of procedure: 02/29/24 Time of procedure: 11:00 Pre-op diagnosis: Severe right hip OA Post-op diagnosis: same Procedure & Clinicians Procedure: Right total hip arthroplasty, posterior approach Same procedure as scheduled: Yes Indications: The patient has had progressively worsening right hip pain with radiographic changes consistent with arthritis. Non-operative management has failed and the patient has requested total hip replacement. The risks, benefits and alternatives to surgery were discussed with the patient prior to proceeding. Risks discussed included, but were not limited to, failure to relieve pain, leg length discrepancy, dislocation, stiffness, infection, nerve damage, deep venous thrombosis, pulmonary embolism, stroke, coma, heart attack, permanent paralysis and , as well as the potential need for eventual revision of the prosthetic. 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 The patient received pre-operative antibiotics and was taken to the operating room and placed on the operative table in the left lateral decubitus position after satisfactory anesthesia. A methods time analyst out was performed. The right leg was prepared from the ankle to the iliac crest with ChloroPrep in the usual fashion and draped through sterile drapes. A PA was used during the procedure and was essential for intraoperative retraction and safe implantation of the components. The hip was approached through an approximately 20 cm incision centered over the greater trochanter and curving gently posteriorly as it went proximally. This was carried sharply to the fascia keily, which was divided and retracted with a self retaining retractor. The trochanteric bursa was excised with care being taken to avoid the sciatic nerve, which was identified and protected throughout the case. The short external rotators were incised and the capsulomuscular flap was raised and tagged for later repair. The hip was dislocated, and a femoral neck osteotomy performed approximately 15 mm above the lesser trochanter. Retractors were placed around the femur. The canal was opened with a box cutting osteotome, followed by a T handled reamer and a lateralizing reamer. The chili pepper broach was then used, followed by sequential broaching until there was good stability of the broach in the femur. Retractors were placed to expose the acetabulum. The labrum and central soft tissues were removed. Reaming was performed initially going up in 2 mm increments, then 1 mm increments until good bite was obtained with an odd sized reamer. The cup 1 mm larger than the last reamer was then inserted using the appropriate anteversion guides. It was further stabilized with 2 screws. A trial neutral liner was placed. The broach was placed in the canal. A trial head and neck were then placed and the hip relocated and checked for leg length and stability. An intraoperative film confirmed the component position and no evidence of fracture. The patient was stable in the position of sleep, of squatting, and could be put through a range of motion with 45 degrees internal rotation without dislocation. At 90 degrees flexion, internal rotation to 70 was possible before dislocation. This was felt to be satisfactory and the appropriate components were opened, and the trials were removed. The acetabular liner was impacted into position. The final stem was then impacted into the prepared femoral canal. A brief Betadine soak was performed while trialing with head options. The hip was meticulously irrigated with normal saline. Finally the femoral head was impacted onto the stem. The acetabulum was cleared of all material and the hip relocated one final time. The capsulomuscular flap was then repaired to the greater trochanter though an awl hole using the tag sutures. The short external rotators were repaired with a nonabsorbable suture. The fascia keily was closed with Vicryl. The subcutaneous layer was closed with barbed sutures and skin parag. A mandi Dressing was applied and the patient was taken to recovery having tolerated the procedure well. Complications: none Post-operative Condition: stable Disposition: Acute Care Plan for aftercare: The patient will be maintained on a standard total hip replacement protocol with weight bearing as tolerated and posterior hip precautions. The patient will receive Aspirin and sequential compression devices for DVT prophylaxis. The patient will be discharged home when safe for the home environment.
--- NOTE | 2024-02-29 12:09 | SUR.OPER ---
Lateral on padded OR bed. Gel axillary roll. Arms secured on padded armboard with pillow supporting top arm. Padded hip positioner braces x4 - anterior and posterior chest and pelvis. Additional gel pad used anterior pelvis. Gel pad under bottom leg from knee to foot and secured with tape over sheet.
[2024-02-29] MEDS: LACTATED RINGERS 1,000 ML 100 ML IV (15:14)
--- NOTE | 2024-02-29 16:22 | PC.NURSE ---
Pt to room 215 via bed from PACU. Sleepy but answers appropriately. Denies pain, nausea, or shortness of breath. O2 sat 99% on RA. RLE still with numbness and decreased sensation but Pt able to wiggle toes and move feet. IVF infusing as ordered. SCD's on and running. Bed alarm on for safety. Pt agrees to not attempt to get up without assistance. Pt oriented to room, call light, bed controls, and tv controls. Spouse King is at the bedside.
[2024-02-29] MEDS: ACETAMINOPHEN 325 MG TABLET 650 MG PO (17:08)
[2024-02-29] MEDS: CEFAZOLIN 2 GM/100 ML PREMIX 100 ML IV (18:22)
[2024-02-29] MEDS: ASPIRIN EC 81 MG TABLET PO (21:03)
[2024-02-29] MEDS: CHLORTHALIDONE 25 MG TABLET PO (21:03)
[2024-02-29] MEDS: IBUPROFEN 400 MG TABLET PO (21:03)
[2024-02-29] MEDS: DOCUSATE 100 MG CAPSULE PO (21:04)
[2024-02-29] MEDS: hydrOXYzine HCL 25 MG TABLET PO (23:40)
[2024-03-01] MEDS: LACTATED RINGERS 1,000 ML 100 ML IV (00:28)
[2024-03-01] MEDS: ACETAMINOPHEN 325 MG TABLET 650 MG PO ×4 (01:11→19:09)
[2024-03-01] MEDS: CEFAZOLIN 2 GM/100 ML PREMIX 100 ML IV (01:57)
[2024-03-01] MEDS: IBUPROFEN 400 MG TABLET PO ×4 (02:39→19:08)
[2024-03-01] MEDS: OXYCODONE IR 5 MG TABLET PO (03:44)
--- NOTE | 2024-03-01 06:43 | PM.PNPO.1 ---
Subjective Subjective Date Patient Seen: 03/01/24 Time Patient Seen: 06:43 Interval history: Pt drowsy, awakens easily. Reports being up multiple times o/n to use the bathroom and required quite a bit of assistance. Pain fairly managed w/ oral meds. Has not worked w/ PT yet. Does not feel ready to discharge today d/t need for assistance that she does not feel her can provide. Exam Vital Signs (past 8 hours): Oxygen Delivery Method Room Air Oxygen Flow Rate 0 Narrative Exam Narrative: 3/5 strength in hip flexors, quadriceps, hamstrings; 5/5 DF, PF, EHL on right. Sensation to light touch intact throughout RLE; calf soft and compressible. SHERI dressing working w/ scant bloody drainage. PFSH Medical History (Updated 02/21/24 @ 13:14 by Mine Alvarado RN) RLS (restless legs syndrome) Osteoarthritis Surgical History (Updated 03/01/24 @ 06:46 by Shiela Garcia PA-C) Hx of colonoscopy History of ankle surgery (2001) Social History household members: spouse and children Smoking Status: Never smoker alcohol intake: current Assessment & Plan Post-op Assessment and plan (1) S/P total hip arthroplasty: Assessment and Plan narrative: Work w/ PT today. Disposition will be tailored to their assessment. Hopefully, pt will d/c home tomorrow w/ spouse, but may need SNF if slow w/ mobilization. Continue multimodal pain contol. Postoperative Procedures: Procedures Operation Date: 02/29/24 10:45 Actual Procedure Side Surgeon p Total Hip Arthroplasty Right Bee Lake MD Postoperative day: 1
[2024-03-01 06:56] LABS: Hematocrit 30.8 % (36-46); Hemoglobin 10.6 g/dL (12.0-16.0)
[2024-03-01] MEDS: LORATADINE 10 MG TABLET PO (08:29)
[2024-03-01] MEDS: ASPIRIN EC 81 MG TABLET PO ×2 (08:30→21:03)
[2024-03-01] MEDS: DOCUSATE 100 MG CAPSULE PO ×2 (08:30→21:03)
--- NOTE | 2024-03-01 10:10 | PT.IIE ---
Current Diagnoses Unilateral primary osteoarthritis, right hip (02/29/24) Presence of unspecified artificial hip joint (02/29/24) Surgery Performed Operation Date: 02/29/24 10:45 Actual Procedures p Total Hip Arthroplasty(Right) - Bee Lake MD Surgical History (Last Updated 02/21/24 @ 13:17 by Mine Alvarado, RN) History of ankle surgery (2001) Hx of colonoscopy Medical History (Last Updated 02/21/24 @ 13:14 by Mine Alvarado RN) Osteoarthritis RLS (restless legs syndrome) Physical Therapy Inpatient Evaluation/Re-Eval M1 PT/OT-IP Prior Functional Status Start: 03/01/24 12:45 Freq: NEEDED Status: Active Protocol: Document 03/01/24 10:10 AB (Rec: 03/01/24 13:04 AB [id number]) Medical Review Prior Functional Status Medical History Reviewed Yes Communication able to answer questions but needed increase time to respond; TAKOTNA Mobility and Gait pt stated that she was indpeendent with all mobilities and ambulation using a SPC for has been using a FWW for the last 3 months due to hip pain Social History Household Members spouse,children Living Arrangements House Number of Floors (Floors) One Floor Number of Stairs To Enter/Railing? 2 platform steps to enter Additional Social History Comment pt's spouse plans to assist pt at home but also has her son living with them that can also assist if needed pt stated that she goes up a platform step to get into her low bed due to her sliding off the EOB M2 PT-IP Current Condition Start: 03/01/24 12:45 Freq: NEEDED Status: Active Protocol: Document 03/01/24 10:10 AB (Rec: 03/01/24 13:04 AB [id number]) Physical Therapy Current Condition Current Condition Evaluation Date 03/01/24 Treatment Diagnosis s/p R RIVERA posterior; difficulty in walking Onset Date 02/29/24 M3 PT-IP Subjective Start: 03/01/24 12:45 Freq: NEEDED Status: Active Protocol: Document 03/01/24 10:10 AB (Rec: 03/01/24 13:04 AB [id number]) Subjective Physical Therapy Visit Type Type Initial Evaluation Visit Start Time 10:10 Visit Stop Time 11:35 Number of PHYSICIAN EXTENDER Visits 0 Physical Therapy Visit Comments Patient Comments agreeable to do PT Therapy Pain Assessment Pain When Pain Assessed At Rest Pain Present Pain Present Pain Reported Location Right Hip Intensity 5 Scale Used increases 7-8/10 with mobility Pain Management Techniques Apply Cold,Distraction, Modification of Treatment,Re- positioning,Timing of Activity with Medications M4 PT-IP Mobility and Gait Start: 03/01/24 12:45 Freq: NEEDED Status: Active Protocol: Document 03/01/24 10:10 AB (Rec: 03/01/24 13:04 AB [id number]) PT-Bed Mobility Assessment Supine to Sit Supine to Sit Maximum Assistance,1 Person Assistance Sit to Supine Sit to Supine Maximum Assistance,1 Person Assistance PT-Transfer Assessment Sit to and From Stand Sit to and from Stand Moderate Assistance,1 Person Assistance,Use of Upper Extremities Equipment Transfer Assistive Device Gait Belt,Front Wheeled Walker Orthotic/Prosthetic Devices or Brace: No Transfers Transfer Destination Chair,Toilet Transfer Technique Stand Step Pivot Transfer Ability Level of Assist Moderate Assistance,Maximum Assistance,1 Person Assistance ,Use of Upper Extremities Comments Mobility Comments pt sitting on the chair. spouse in room with pt. obtained PLOF and home set up from pt and spouse. pt seems foggy and needs time to respond to questions and instructions. post-op folder provided and reviewed contents . educated pt and spouse regarding pt's R hip posterior precautions. pt required cues to recall precautions after education provided. pt completed sit to stand mod to max A and max cues. presents wit stooped posture. cued to stand upright. ambulated only ~ 3 ft using FWW mod to max A and max cues. pt sat back on chair. BP checked: 133/58. pt rested. pt completed sit to stand from chair mod A and cues and step transfer to EOB mod A using FWW. completed sit to supine max A and max cues for hip precautions. pt completed supine to sit max A and max cues. sit to stand from EOB mod A to max A and max cues and step transfer back to chair using fWW mod A and cues. pt needed max A for sitting back for a controlled descent. positioned pt on the chair. call light and table placed within reach. will see pt again this afternoon at ~ 2pm for possible caregiver training. spouse agreed. Gait Assessment Gait Gait Assistance Required: Moderate Assistance,Maximum Assistance Distance (Feet) 3 Able to Maintain Weight Bearing Status Yes During Gait Assistive Devices Assistive Device Gait Belt,Front Wheeled Walker Orthotic/Prosthetic Devices or Brace: No Gait Deviations General Gait Pattern Antalgic,Decreased Stride Length,Decreased Feet Clearance,Step-to Gait Factors Limiting Gait Function Factors Limiting Gait Function Decreased Activity Tolerance, Decreased Strength,Difficulty Following Directions,Limited Range of Motion,Pain,Poor Balance,Poor Safety Awareness PT-Balance Assessment Sitting Balance and Reactions Static Sitting Balance Ability Good Dynamic Sitting Balance Ability Fair Standing Balance and Reactions Static Standing Balance Ability Fair Dynamic Standing Balance Ability Poor Device Used FWW M5 PT-IP Objective Assessments Start: 03/01/24 12:45 Freq: NEEDED Status: Active Protocol: Document 03/01/24 10:10 AB (Rec: 03/01/24 13:04 AB [id number]) Orientation Orientation/Cognition Level of Alertness Alert Orientation Name Language Function Ability Hard of Hearing Safety Awareness Decreased Safety Awareness Memory Description Short Term Impaired Comments with slight confusion Strength Lower Extremity Strength Assessment Right Impaired Hip 3+/5 Knee 3+/5 Sensation Assessment Sensation Gross Sensation WNL Muscle Tone Muscle Tone WNL Yes M6 PT-IP Treatment Start: 03/01/24 12:45 Freq: NEEDED Status: Active Protocol: Document 03/01/24 10:10 AB (Rec: 03/01/24 13:04 AB [id number]) Physical Therapy Treatment Education Education Provided Precautions,Weight Bearing Status,Post-Op Packet,Safety M7 PT-IP Assessment and Plan Start: 03/01/24 12:45 Freq: NEEDED Status: Active Protocol: Document 03/01/24 10:10 AB (Rec: 03/01/24 13:04 AB [id number]) PT Summary Assessment and Plan Potential Rehabilitation Potential Fair Status of Condition at Evaluation Evolving Summary Impairments Pain,ROM,Strength,Balance, Coordination,Sensation,Tone, Cognition,Bed Mobility, Transfers,Gait,Activity Tolerance Assessment Summary Pt is a 78 y/o F s/p R RIVERA posterior approach POD 1. pt with R hip posterior precautions and is WBAT. pt requiring mod to max A with max cues with mobility using FWW. pt with difficulty adhereing to hip precautions and needs max cues with all tasks. will continue to assess progress. will conduct caregiver training when appropriate. d/c plan: SNF vs 12/04 assist with HHPT. Goals Bed Mobility Goal Standby Assistance Transfer Goal Standby Assistance,Front Wheeled Walker Gait Goal Standby Assistance,Front Wheel Walker Gait Distance 200 Other Goals up/down 2 platform steps using FWW Days to Meet Goals 5 Frequency of Treatment Frequency Of Treatment Twice a Day Treatment Plan Physical Therapy Treatment Plan Bed Mobility Training,Transfer Training,Gait Training, Therapeutic Exercise,Balance Retraining,Post Op Education, Discharge Planning,Hot or Cold Pack,Neuromuscular Re-ed, Coordination Retraining,Manual Therapy Precautions Posterior Hip Precautions No Hip Flexion > 90 degrees,No Hip Internal Rotation,No Hip Adduction Weight Bearing Status Weight Bearing Status Weight Bear as Tolerated Allowed Weight Bearing Amount (enter % RLE WBAT or #) (%) Recommendations To Nursing Amount of Assist Needed 1 Person Assist Discharge Recommendations PT Discharge Recommendations Home with 12/04 Assist Available,Home Health,SNF Rehab,Home vs SNF Transportation Needs at Discharge Private Vehicle,Wheelchair/ Cabulance
[2024-03-01 10:13] VITALS: BP 117/53; PULSE 68; TEMP 36.6; O2SAT 18
[2024-03-01 11:39] VITALS: BP 117/49
[2024-03-01] MEDS: LOSARTAN 50 MG TABLET PO (11:39)
--- NOTE | 2024-03-01 13:55 | OT.IP.EVAL ---
Current Diagnoses Unilateral primary osteoarthritis, right hip (02/29/24) Presence of unspecified artificial hip joint (02/29/24) Surgery Performed Operation Date: 02/29/24 10:45 Actual Procedures p Total Hip Arthroplasty(Right) - Bee Lake MD Past Medical History (Last Updated 02/21/24 @ 13:14 by Mine Alvarado, RN) Osteoarthritis RLS (restless legs syndrome) Surgical History (Last Updated 02/21/24 @ 13:17 by Mine Alvarado RN) History of ankle surgery (2001) Hx of colonoscopy Occupational Therapy Inpatient Evaluation/Re-Eval M1 PT/OT-IP Prior Functional Status Start: 03/01/24 12:45 Freq: NEEDED Status: Active Protocol: Document 03/01/24 14:20 [facility] (Rec: 03/01/24 14:41 [facility] [id number]) Medical Review Prior Functional Status Medical History Reviewed Yes Communication able to answer questions but needed increase time to respond; [facility] Mobility and Gait pt stated that she was independent with all mobilities and ambulation using a SPC for has been using a FWW for the last 3 months due to hip pain Activities of Daily Living and IADL's Pt states her has been assisting with her socks and shoes at home. Social History Household Members spouse,children Living Arrangements House Number of Floors (Floors) One Floor Number of Stairs To Enter/Railing? 2 platform steps to enter Home Environment Standard Height Toilet,Tub/ Shower Home Equipment Front Wheel Walker,Bedside Commode,Raised Toilet Seat w/ Armrests,Tub Transfer Bench, Hand Held Shower,Collaborative Physician Additional Social History Comment pt's spouse plans to assist pt at home but also has her son living with them that can also assist if needed pt stated that she goes up a platform step to get into her low bed due to her sliding off the EOB Pt thinks they has a bsc frame but not sure if if has a bucket to it. M2 OT-IP Current Condition Start: 03/01/24 14:20 Freq: Status: Active Protocol: Document 03/01/24 14:20 [facility] (Rec: 03/01/24 14:41 [facility] [id number]) Occupational Therapy Current Condition Current Condition Evaluation Date 03/01/24 Treatment Diagnosis S/P R RIVERA posterior approach Diagnosis Onset Date 02/28/23 Post Operative Precautions Posterior Hip Precautions No Hip Flexion > 90 degrees,No Hip Internal Rotation,No Hip Adduction M3 OT- IP Subjective and Pain Start: 03/01/24 14:20 Freq: Status: Active Protocol: Document 03/01/24 14:20 [facility] (Rec: 03/01/24 14:41 [facility] [id number]) OT- Subjective Occupational Therapy Visit Type Type Initial Evaluation Visit Start Time 13:05 Visit Stop Time 13:55 Occupational Therapy Visit Comments Patient Comments Pt agrees to get up to use the bathroom. Pt's present in the room for caregiver training. Patient/Caregiver Goals To go home. OT Pain Assessment Pain When Pain Assessed During Mobility Pain Present Pain Present Pain Reported Location Right Hip Intensity 6 Scale Used Numeric (0 - 10) M4 OT- IP ADL's Start: 03/01/24 14:20 Freq: Status: Active Protocol: Document 03/01/24 14:20 [facility] (Rec: 03/01/24 14:41 [facility] [id number]) OT [id number] General Evaluation Self-Feeding Ability Independent OT ADL-Grooming General Evaluation Grooming Ability Standby Assistance Areas Needing Assistance Retrieving/Set-up of Grooming Items Comments OT Grooming Comments Set-up assist while seated in the recliner. OT ADL-Oral Care General Eval Oral Care Ability Independent Comments Oral Care Comments Noted pt spit out a plastic corner from what believed to be a honey package- nursing notified. OT ADL-Dressing General Eval Lower Body Dressing Ability Maximum Assistance Comments OT Dressing Comments Able to practice use of squeak rattle and leak repairer and socks aid for LB dressing needs. OT ADL-Toileting General Evaluation Toileting Ability Moderate Assistance Areas Needing Assistance Manage Clothing Comments OT Toileting Comments Pt educated best to stand to wipe to best follow her hip precautions. Suggested to use the BSC at night especially as pt has to get up every two hours to go at night. Suggested to get pull up or use of pads and wet wipes. OT ADL-Bathing Comments OT Bathing Comments Pt insists that she will just sponge off initially. Educated of keeping the dressing covered for showering needs. Pt states the surgeon told her not to shower until the dressing was off. M5 OT- IP IADL's Start: 03/01/24 14:20 Freq: Status: Active Protocol: Document 03/01/24 14:20 [facility] (Rec: 03/01/24 14:41 [facility] [id number]) OT-Instrumental Activities of Daily Living Deficits IADL Deficits Identified Deficits Home Safety Awareness Awareness of Need for Assistance at Home Decreased Awareness Home Safety Comments Pt is a little groggy and and slow to respond to questions, in addition pt is very hard of hearing. Meal Preparation Meal Preparation Caregiver Provides Assist Ice Guard Inspector Ice Guard Inspector Caregiver Provides Assist M6 OT- IP Functional Cognition Start: 03/01/24 14:20 Freq: Status: Active Protocol: Document 03/01/24 14:20 [facility] (Rec: 03/01/24 14:41 [facility] [id number]) Cognitive Factors Limiting Selfcare Function Cognitive Ability Level of Alertness Alert Patient Orientation Name,Place,Situation Attention Span Ability Capable of Focused Attention, Capable of Sustained Attention Ability to Follow Commands Able to Follow One Step Commands with Increased Time, Able to Follow One Step Commands with Repetition Safety Awareness Decreased Ability to Apply Precautions Cognitive Comments Cognitive Assessment Comments Pt slow to respond and initiate movements at this time. Pt's states she normally is a little slow to respond but now even more so since having surgery. Pt is also very hard of hearing and needing the speaker to be talking in front of her in order to full hear and understand instructions. Pt feels that she does not need hearing aids but her states that she needs them. Pt needing step by step cues to be able to incorporate her hip precautions for ADL and mobility needs. Pt will continue to benefit from more training in addition training with her to be able to assist her for all needs. OT- Vision and Hearing OT- Hearing Assessment OT- Hearing Assessment Hearing Impaired OT- Vision Assessment Visual Attentiveness WFL Occular Pursuits WFL M7 OT- IP Mobility and Balance Start: 03/01/24 14:20 Freq: Status: Active Protocol: Document 03/01/24 14:20 [facility] (Rec: 03/01/24 14:41 [facility] [id number]) OT-Transfer Assessment Sit to and From Stand Sit to and from Stand Moderate Assistance Transfers Transfer Ability Minimal Assistance,Moderate Assistance Technique Transfer Destination Chair,Toilet Transfer Technique Stand Step Pivot Devices Transfer Assistive Devices Gait Belt,Front Wheeled Walker Comments Mobility Comments Able to educated pt's to latosha/doff the gait belt and how to assist pt to stand and for transfers to the toilet. OT- Balance Assessment Sitting Balance and Reactions Static Sitting Balance Ability Good Dynamic Sitting Balance Ability Fair Standing Balance and Reactions Static Standing Balance Ability Fair Dynamic Standing Balance Ability Fair M8 OT- IP Objective Assessments Start: 03/01/24 14:20 Freq: Status: Active Protocol: Document 03/01/24 14:20 [facility] (Rec: 03/01/24 14:41 [facility] [id number]) OT Gross Range of Motion Upper Extremity Range of Motion Assessment Within Functional Limits OT Strength Upper Extremity Strength Assessment Within Functional Limits M9 OT- IP Assessment and Plan Start: 03/01/24 14:20 Freq: Status: Active Protocol: Document 03/01/24 14:20 [facility] (Rec: 03/01/24 14:41 [facility] [id number]) OT Summary Assessment and Plan Potential Rehabilitation Potential Good Analytic Complexity at Evaluation Low Summary OT Impairments Pain,Strength,Balance, Functional Cognition, Functional Mobility,Grooming, Dressing,Toileting,Bathing, Toilet Transfers,Shower Transfers,Activity Tolerance Progress Towards Goals Progressing Toward Goals Assessment Summary Pt low complexity and main barriers are pain, steps, transitions, and slow to respond and follow directions from surgery. Pt's has initiated caregiver training and hopeful that pt to go home with 24/7 assist and go to outpt PT. Goals Grooming Goal Independent Dressing Goal Minimal Assistance Toileting Goal Standby Assistance Bathing Goal Minimal Assistance Toilet Transfer Goal Standby Assistance Shower Transfer Goal Contact Guard Assistance Days to Meet Goals 5 Frequency of Treatment Frequency Of Treatment Once a Day Treatment Plan OT Treatment Plan ADL Training,Functional Cognition Training,Functional Mobility,Patient/Family Education,Discharge Planning Discharge Recommendations OT Discharge Recommendations Home with 24/7 Assist Available,Home Health, Outpatient PT,Home vs SNF Transportation Needs at Discharge Private Vehicle,Wheelchair/ Cabulance
--- NOTE | 2024-03-01 13:58 | CM.DANOTE ---
Initial DCP Assessment Note Pt is a 78 yo female, resident of [place], now POD#1 from [facility] PCP: Roque Will Payer: MCR/ for Life Reviewed chart, pt will remain here this evening according to note by Miranda Garcia. Patient lives at home w/spouse and son, indp in all aspects, poor activity tolerance lately r/t hip pain. Patient hopeful to return home with family, therapies have not cleared patient for this plan. If patient and family decide that patient requires a SNF stay, it is likely patient will not have a SNF MCR benefit. Patient is currently SDC and patient would need to have three INPT nights. Patient and family will need to consider paying privately for SNF if it continues to be recommended. CM team will plan to follow clinical course closely. JAY Hernandez Discharge Planning/Care Management CM Discharge Assessment Start: 03/01/24 13:50 Freq: Status: Active Protocol: Document 03/01/24 13:50 [facility] (Rec: 03/01/24 13:58 [facility] [id number]) Discharge Planning Assessment Assigned Night Stocker JAY Fuller DPOA/Assigned Designee Name King Sharma, spouse Contact Information [phone] Advance Directives? No History Provided By Patient,Medical Record Prior Living Arrangements House Household Members spouse,children Type of transporation used prior to Relies on Others admit Independent with ADL's Yes: Poor activity tolerance. FWW last few months Is patient alert and oriented? Yes Needs Assistance With Meal Prep,Home Chores / Shopping Barriers to Discharge Yes Comment Patient has not been cleared by therapies for return home today. Patient is expected to stay this evening; hopefully patient will be able to discharge home with spouse and son to assist tomorrow. Likely HH referral if patient agreeable. Discharge Plan Home with Home Health Transportation Arrangement Family Additional Comment Will plan to discuss the option of HH with patient and family.
--- NOTE | 2024-03-01 14:30 | PT.IPTN ---
Current Diagnoses Unilateral primary osteoarthritis, right hip (02/29/24) Presence of unspecified artificial hip joint (02/29/24) Surgery Performed Operation Date: 02/29/24 10:45 Actual Procedures p Total Hip Arthroplasty(Right) - Bee Lake MD Physical Therapy Treatment Note M2 PT-IP Current Condition Start: 03/01/24 12:45 Freq: NEEDED Status: Active Protocol: Document 03/01/24 10:10 AB (Rec: 03/01/24 13:04 AB [id number]) Physical Therapy Current Condition Current Condition Evaluation Date 03/01/24 Treatment Diagnosis s/p R RIVERA posterior; difficulty in walking Onset Date 02/29/24 M3 PT-IP Subjective Start: 03/01/24 12:45 Freq: NEEDED Status: Active Protocol: Document 03/01/24 14:30 [facility] (Rec: 03/01/24 16:42 AB [id number]) Subjective Physical Therapy Visit Type Type Treatment Note Visit Start Time 14:30 Visit Stop Time 15:58 Number of STRANNER Visits 0 Therapy Pain Assessment Pain When Pain Assessed At Rest Pain Present Pain Present Pain Reported Location Right Hip Intensity 3 Scale Used Numeric (0 - 10) Pain Management Techniques Apply Cold,Distraction, Modification of Treatment,Re- positioning,Timing of Activity with Medications M4 PT-IP Mobility and Gait Start: 03/01/24 12:45 Freq: NEEDED Status: Active Protocol: Document 03/01/24 14:30 AB (Rec: 03/01/24 16:42 AB [id number]) PT-Bed Mobility Assessment Supine to Sit Supine to Sit Maximum Assistance Sit to Supine Sit to Supine Maximum Assistance PT-Transfer Assessment Sit to and From Stand Sit to and from Stand Moderate Assistance,1 Person Assistance,Use of Upper Extremities Equipment Transfer Assistive Device Gait Belt,Front Wheeled Walker Orthotic/Prosthetic Devices or Brace: No Transfers Transfer Destination Bed Transfer Technique ambulated Transfer Ability Level of Assist Minimal Assistance,Moderate Assistance,1 Person Assistance ,Use of Upper Extremities Comments Mobility Comments pt sitting on the chair. spouse in room for caregiver training. reviewed posterior hip precautions and pt recalled 2/3 precautions. educated spouse on how to use safety belt and how to assist pt. spouse was able to use safety belt on pt . assisted pt with sit to stand from the chair. instructed spouse on how to provide cues to pt when needed. spouse ambulated pt in room using FWW ~ 30 ft min to mod A. spouse was able to provide cues to pt but needs occasional reminders from PT to instruct pt. pt sat on EOB . completed sit to supine. pt stated that she usually lie down sideways to get into the bed. pt completed requiring max A and max cues for hip precautions as pt tends to twist on LE. c/o increase pain on R hip afterwards. informed pt regarding more pain on R hip with laying down on R side prior to movement but pt wants to try to do sidelying. educated spouse on how to assist pt with supine to sit. pt completed supine to sit max A and max cues. pt completed sit to stand from the EOB with spouse assisting mod A and took side steps towards HOB using FWW mod A with spouse assisting to position in bed. pt sat on EOB mod A for controlled descent. PT needed to cue pt and for spouse to cue pt to reach back for bed for controlled sitting. instructed pt to scoot towards HOB. spoue assisted pt with LE elevation to bed during scooting and pt able to get to supine position with scooting towards HOB with max A for LE positioning. pt requested to stay in bed at this time. positioned pt in bed. call light and table placed within reach. caregiver training set up for tomorrow at ~ 1030am . spouse stated that he will be in ~ 9 and will stay with pt and caregiver training can be sooner if able. Gait Assessment Gait Gait Assistance Required: Minimum Assistance,Moderate Assistance Distance (Feet) 30 Able to Maintain Weight Bearing Status Yes During Gait Assistive Devices Assistive Device Gait Belt,Front Wheeled Walker Orthotic/Prosthetic Devices or Brace: No Gait Deviations General Gait Pattern Decreased Stride Length, Decreased Feet Clearance Factors Limiting Gait Function Factors Limiting Gait Function Decreased Activity Tolerance, Decreased Strength,Difficulty Following Directions,Limited Range of Motion,Pain,Poor Balance,Poor Safety Awareness M5 PT-IP Objective Assessments Start: 03/01/24 12:45 Freq: NEEDED Status: Active Protocol: Document 03/01/24 10:10 AB (Rec: 03/01/24 13:04 AB [id number]) Orientation Orientation/Cognition Level of Alertness Alert Orientation Name Language Function Ability Hard of Hearing Safety Awareness Decreased Safety Awareness Memory Description Short Term Impaired Comments with slight confusion Strength Lower Extremity Strength Assessment Right Impaired Hip 3+/5 Knee 3+/5 Sensation Assessment Sensation Gross Sensation WNL Muscle Tone Muscle Tone WNL Yes M6 PT-IP Treatment Start: 03/01/24 12:45 Freq: NEEDED Status: Active Protocol: Document 03/01/24 14:30 AB (Rec: 03/01/24 16:42 AB [id number]) Physical Therapy Treatment Education Education Provided Precautions,Weight Bearing Status,Safety M7 PT-IP Assessment and Plan Start: 03/01/24 12:45 Freq: NEEDED Status: Active Protocol: Document 03/01/24 14:30 AB (Rec: 03/01/24 16:42 AB [id number]) PT Summary Assessment and Plan Potential Rehabilitation Potential Fair Summary Impairments Pain,ROM,Strength,Balance, Coordination,Sensation,Tone, Cognition,Bed Mobility, Transfers,Gait,Activity Tolerance Progress Towards Goals Slow Progress due to Activity Tolerance,Slow Progress - Other Assessment Summary caregiver training initiated and further training is needed . set up another caregiver training for tomorrow at ~ 1030 am. pt plans to go home and spouse to assist. pt will also need to complete stair climbing training prior to d/c . pt has 2 platform steps to enter the house. will continue to assess. Goals Bed Mobility Goal Standby Assistance Transfer Goal Standby Assistance,Front Wheeled Walker Gait Goal Standby Assistance,Front Wheel Walker Gait Distance 200 Other Goals up/down 2 platform steps using Days to Meet Goals 5 Frequency of Treatment Frequency Of Treatment Twice a Day Treatment Plan Physical Therapy Treatment Plan Bed Mobility Training,Transfer Training,Gait Training, Therapeutic Exercise,Balance Retraining,Post Op Education, Discharge Planning,Hot or Cold Pack,Neuromuscular Re-ed, Coordination Retraining,Manual Therapy Precautions Posterior Hip Precautions No Hip Flexion > 90 degrees,No Hip Internal Rotation,No Hip Adduction Weight Bearing Status Weight Bearing Status Weight Bear as Tolerated Allowed Weight Bearing Amount (enter % RLE WBAT or #) (%) Recommendations To Nursing Amount of Assist Needed 1 Person Assist Discharge Recommendations PT Discharge Recommendations Home with 12/04 Assist Available,Home Health Transportation Needs at Discharge Private Vehicle,Wheelchair/ Cabulance
[2024-03-01] MEDS: MAG HYDROX/ALUM/SIMETH 30 ML UDC PO (19:08)
[2024-03-01] MEDS: CHLORTHALIDONE 25 MG TABLET PO (21:03)
[2024-03-01] MEDS: hydrOXYzine HCL 25 MG TABLET PO (21:03)
[2024-03-01 21:05] VITALS: BP 120/40; PULSE 65; RESP 17; O2SAT 96
[2024-03-02 08:00] VITALS: BP 149/62; PULSE 69; RESP 17; TEMP 36.8; O2SAT 98
[2024-03-02] MEDS: LORATADINE 10 MG TABLET PO (08:55)
[2024-03-02] MEDS: ASPIRIN EC 81 MG TABLET PO (08:55)
[2024-03-02] MEDS: DOCUSATE 100 MG CAPSULE PO (08:55)
[2024-03-02] MEDS: ACETAMINOPHEN 325 MG TABLET 650 MG PO (08:55)
--- NOTE | 2024-03-02 09:40 | PT.IPTN ---
Current Diagnoses Unilateral primary osteoarthritis, right hip (02/29/24) Presence of unspecified artificial hip joint (02/29/24) Surgery Performed Operation Date: 02/29/24 10:45 Actual Procedures p Total Hip Arthroplasty(Right) - Bee Lake MD Physical Therapy Treatment Note M2 PT-IP Current Condition Start: 03/01/24 12:45 Freq: NEEDED Status: Active Protocol: Document 03/01/24 10:10 AB (Rec: 03/01/24 13:04 AB [id number]) Physical Therapy Current Condition Current Condition Evaluation Date 03/01/24 Treatment Diagnosis s/p R RIVERA posterior; difficulty in walking Onset Date 02/29/24 M3 PT-IP Subjective Start: 03/01/24 12:45 Freq: NEEDED Status: Active Protocol: Document 03/02/24 11:00 TS (Rec: 03/02/24 11:16 TS [id number]) Subjective Physical Therapy Visit Type Type Treatment Note Visit Start Time 09:40 Visit Stop Time 10:26 Number of ADJUSTER Visits 1 Physical Therapy Visit Comments Patient Comments Pt found resting in chair, is agreeable to PT. Therapy Pain Assessment Pain When Pain Assessed At Rest Pain Present Pain Present Pain Reported M4 PT-IP Mobility and Gait Start: 03/01/24 12:45 Freq: NEEDED Status: Active Protocol: Document 03/02/24 11:00 TS (Rec: 03/02/24 11:16 TS [id number]) PT-Bed Mobility Assessment Sit to Supine Sit to Supine Minimal Assistance,1 Person Assistance PT-Transfer Assessment Sit to and From Stand Sit to and from Stand Standby Assistance,Use of Upper Extremities Equipment Transfer Assistive Device Gait Belt,Front Wheeled Walker Orthotic/Prosthetic Devices or Brace: No Comments Mobility Comments Pt recalls 1/3 hip precautions prior to mobility(no crossing legs). Spouse dons gait belt while pt is in chair. STS from chair SBA with cues for sequencing. She ambulates ~30' in room with FWW and step to gait. She reports increasing pain and would like to use toilet. She requires some assistance with pericare from spouse. STS from toilet SBA with use of FWW and grab bar. stairs x1 on platform step with use of FWW, pt requries CGA and cues for sequencing. Sit to supine into bed Maya for RLE. Pt recalled 3/3 hip precautions at end of session. Pt was left in bed, all needs met. Gait Assessment Gait Gait Assistance Required: Standby Assistance Distance (Feet) 30 Able to Maintain Weight Bearing Status Yes During Gait Assistive Devices Assistive Device Gait Belt,Front Wheeled Walker Orthotic/Prosthetic Devices or Brace: No Gait Deviations General Gait Pattern Decreased Stride Length, Decreased Feet Clearance Factors Limiting Gait Function Factors Limiting Gait Function Decreased Activity Tolerance, Decreased Strength,Difficulty Following Directions,Limited Range of Motion,Pain,Poor Balance,Poor Safety Awareness Comments Gait Comments See mobility comments Stair Climbing Assessment Evaluation Level of Assist On Stairs Contact Guard Assistance,1 Person Assistance Devices Stair Climbing Assistive Devices Front Wheel Walker Technique/Endurance Stair Climbing Direction Ascend and Descend Stair Climbing Technique Step to Step Number of Steps Climbed 1 Comments Stair Climbing Comments See mobility comments PT-Balance Assessment Sitting Balance and Reactions Static Sitting Balance Ability Good Dynamic Sitting Balance Ability Fair Standing Balance and Reactions Static Standing Balance Ability Fair Dynamic Standing Balance Ability Fair Device Used FWW M5 PT-IP Objective Assessments Start: 03/01/24 12:45 Freq: NEEDED Status: Active Protocol: Document 03/01/24 10:10 AB (Rec: 03/01/24 13:04 AB [id number]) Orientation Orientation/Cognition Level of Alertness Alert Orientation Name Language Function Ability Hard of Hearing Safety Awareness Decreased Safety Awareness Memory Description Short Term Impaired Comments with slight confusion Strength Lower Extremity Strength Assessment Right Impaired Hip 3+/5 Knee 3+/5 Sensation Assessment Sensation Gross Sensation WNL Muscle Tone Muscle Tone WNL Yes M6 PT-IP Treatment Start: 03/01/24 12:45 Freq: NEEDED Status: Active Protocol: Document 03/02/24 11:00 TS (Rec: 03/02/24 11:16 [id number]) Physical Therapy Treatment Education Education Provided Precautions,Weight Bearing Status,Safety M7 PT-IP Assessment and Plan Start: 03/01/24 12:45 Freq: NEEDED Status: Active Protocol: Document 03/02/24 11:00 TS (Rec: 03/02/24 11:16 [id number]) PT Summary Assessment and Plan Potential Rehabilitation Potential Fair Summary Impairments Pain,ROM,Strength,Balance, Coordination,Sensation,Tone, Cognition,Bed Mobility, Transfers,Gait,Activity Tolerance Progress Towards Goals Slow Progress due to Activity Tolerance,Slow Progress - Other Assessment Summary Anastasia is making good progress with her mobility. She is SBA for STS and requires some cues for sequencing. She continues to ambulate short distances in the room, is somewhat limited by pain. She performed steps x1 on platform step with FWW. PT recommends home with 24/7 assist and HHPT. Goals Bed Mobility Goal Standby Assistance Transfer Goal Standby Assistance,Front Wheeled Walker Gait Goal Standby Assistance,Front Wheel Walker Gait Distance 200 Other Goals up/down 2 platform steps using FWW Days to Meet Goals 5 Frequency of Treatment Frequency Of Treatment Twice a Day Treatment Plan Physical Therapy Treatment Plan Bed Mobility Training,Transfer Training,Gait Training, Therapeutic Exercise,Balance Retraining,Post Op Education, Discharge Planning,Hot or Cold Pack,Neuromuscular Re-ed, Coordination Retraining,Manual Therapy Precautions Posterior Hip Precautions No Hip Flexion > 90 degrees,No Hip Internal Rotation,No Hip Adduction Weight Bearing Status Weight Bearing Status Weight Bear as Tolerated Allowed Weight Bearing Amount (enter % RLE WBAT or #) (%) Recommendations To Nursing Amount of Assist Needed Standby Assistance Discharge Recommendations PT Discharge Recommendations Home with 24/7 Assist Available,Home Health Transportation Needs at Discharge Private Vehicle
[2024-03-02] MEDS: IBUPROFEN 400 MG TABLET PO (10:29)
--- NOTE | 2024-03-02 12:54 | OT.IP.TRT ---
Current Diagnoses Unilateral primary osteoarthritis, right hip (02/29/24) Presence of unspecified artificial hip joint (02/29/24) Surgery Performed Operation Date: 02/29/24 10:45 Actual Procedures p Total Hip Arthroplasty(Right) - Bee Lake MD Occupational Therapy Treatment Note M2 OT-IP Current Condition Start: 03/01/24 14:20 Freq: Status: Active Protocol: Document 03/01/24 14:20 [facility] (Rec: 03/01/24 14:41 [facility] [id number]) Occupational Therapy Current Condition Current Condition Evaluation Date 03/01/24 Treatment Diagnosis S/P R RIVERA posterior approach Diagnosis Onset Date 02/28/23 Post Operative Precautions Posterior Hip Precautions No Hip Flexion > 90 degrees,No Hip Internal Rotation,No Hip Adduction M3 OT- IP Subjective and Pain Start: 03/01/24 14:20 Freq: Status: Active Protocol: Document 03/02/24 13:01 [facility] (Rec: 03/02/24 13:11 [facility] [id number]) OT- Subjective Occupational Therapy Visit Type Type Treatment Note Visit Start Time 12:46 Visit Stop Time 12:54 Occupational Therapy Visit Comments Patient Comments Pt not ready to try showering as just starting to eat her lunch. Able to reiterate OT needs for ADLs. Patient/Caregiver Goals TO go home. M4 OT- IP ADL's Start: 03/01/24 14:20 Freq: Status: Active Protocol: Document 03/02/24 13:01 [facility] (Rec: 03/02/24 13:11 [facility] [id number]) OT ADL-Dressing Comments OT Dressing Comments Reiterated to dress her RLE first and take out last. OT ADL-Bathing Comments OT Bathing Comments Educated to pt that she will have to use the tub bench at home and to be sure that her assists to help get her leg into the tub. Pt had to be reminded that she will not be able to reach down to wash her legs and will need assist. M6 OT- IP Functional Cognition Start: 03/01/24 14:20 Freq: Status: Active Protocol: Document 03/02/24 13:01 [facility] (Rec: 03/02/24 13:11 [facility] [id number]) Cognitive Factors Limiting Selfcare Function Cognitive Comments Cognitive Assessment Comments Pt still needing reminders to incoroporate her hip precautions for ADl and mobility needs. M8 OT- IP Objective Assessments Start: 03/01/24 14:20 Freq: Status: Active Protocol: Document 03/01/24 14:20 [facility] (Rec: 03/01/24 14:41 [facility] [id number]) OT Gross Range of Motion Upper Extremity Range of Motion Assessment Within Functional Limits OT Strength Upper Extremity Strength Assessment Within Functional Limits M9 OT- IP Assessment and Plan Start: 03/01/24 14:20 Freq: Status: Active Protocol: Document 03/02/24 13:01 [facility] (Rec: 03/02/24 13:11 [facility] [id number]) OT Summary Assessment and Plan Potential Rehabilitation Potential Good Analytic Complexity at Evaluation Low Summary OT Impairments Pain,Strength,Balance, Functional Cognition, Functional Mobility,Grooming, Dressing,Toileting,Bathing, Toilet Transfers,Shower Transfers,Activity Tolerance Progress Towards Goals Progressing Toward Goals Assessment Summary Pt looking to go home with her to assist for all ADl and mobility needs. Pt still forgetful of her precautions and needing reminders to incorporate with all her needs . Goals Grooming Goal Independent Dressing Goal Minimal Assistance Toileting Goal Standby Assistance Bathing Goal Minimal Assistance Toilet Transfer Goal Standby Assistance Shower Transfer Goal Contact Guard Assistance Days to Meet Goals 5 Frequency of Treatment Frequency Of Treatment Once a Day Treatment Plan OT Treatment Plan ADL Training,Functional Cognition Training,Functional Mobility,Patient/Family Education,Discharge Planning Discharge Recommendations OT Discharge Recommendations Home with 12/04 Assist Available,Outpatient PT Transportation Needs at Discharge Private Vehicle
--- NOTE | 2024-03-02 13:17 | P.DS_ITS ---
History of Present Illness History of Present Illness Chief complaint: Right Total Hip Arthroplasty Narrative: Anastasia is a 78-year-old female who is postop day #2 s/p right posterior total hip arthroplasty by Dr. Lake. Overall she is doing well today, worked with PT and did well. Urinating well without issue. Has not passed a bowel movement yet. Pain is moderate and well controlled with oral oxycodone. Has post-op meds at home already along with ice packs. Lives at home with who is willing and willing to aid in patient's postop recovery. He was present during PT session today and learned some ways he can assist patient at home which helped both of their confidence in discharging home. Patient has outpatient physical therapy scheduled with [facility], 1st appointment is next week. Denies fever, chills, chest pain, SOB, nausea, vomiting. Operative Date/Time/Diagnoses Date of procedure: 02/29/24 Time of procedure: 11:00 Pre-op diagnosis: Severe right hip OA Post-op diagnosis: same Procedure & Clinicians Procedure: Right total hip arthroplasty, posterior approach Same procedure as scheduled: Yes Indications: The patient has had progressively worsening right hip pain with radiographic changes consistent with arthritis. Non-operative management has failed and the patient has requested total hip replacement. The risks, benefits and alternatives to surgery were discussed with the patient prior to proceeding. Risks discussed included, but were not limited to, failure to relieve pain, leg length discrepancy, dislocation, stiffness, infection, nerve damage, deep venous thrombosis, pulmonary embolism, stroke, coma, heart attack, permanent paralysis and , as well as the potential need for eventual revision of the prosthetic. Surgeon: Bee Lake Shrimp Trawler Captain: Gabriel Mojica Anesthesia Type: General and Spinal Discharge Providers Provider Discharge Date: 03/02/24 Primary care physician: Roque Will DO Consults: 02/21/24 13:42 Consult to Anesthesiology Routine Comment: Consulting Provider: Anesthesiologist Reason for consultation: PAC courtesy re: Abnormal pre-op EKG 02/29/24 06:00 Consult to Anesthesiology Routine Comment: Consulting Provider: Anesthesiologist Reason for consultation: Regional block for post operative pain control 02/29/24 14:26 Consult to Discharge Planning Routine Comment: Consult to Occupational Therapy Evaluate & Treat Comment: Physician Instructions: Evaluate and treat Consult to Physical Therapy Evaluate & Treat Comment: Physician Instructions: post op RIVERA protocol Discharge provider: Romelia Rojas PA-C Summary Hospital Course Discharge Diagnosis: Stable status post right RIVERA Hospital Course: Hospital course complicated by poor mobility and postop day #1 Exam Vital Signs (past 8 hours): - 03/02/24 08:00 Temperature 98.2 F Pulse Rate 69 Respiratory Rate 17 Blood Pressure 149/62 H Pulse Oximetry 98 Oxygen Flow Rate 0 Oxygen Delivery Method Room Air Oxygen Flow Rate 0 Narrative Exam Narrative: Sitting in bedside chair eating lunch during our interview today. at bedside. No acute distress. Resp Effort & Inspection: normal respiratory effort and able to speak in complete sentences Cardio Rate: regular rate Other: Brisk capillary refill Neuro General: patient alert, patient awake and patient oriented x3 Extrem Other: 5/5 strength with DF, PF, EHL. Knee flexion and extension intact. Calfs soft and non-tender bilaterally. Gross sensation to light touch throughout bilateral lower extremities. Right posterior hip mandi surgical dressing intact, dry and functioning with mild bloody discharge. Objective Labs 03/01/24 05:50 PFSH Medical History (Updated 02/21/24 @ 13:14 by Mine Alvarado RN) RLS (restless legs syndrome) Osteoarthritis Surgical History (Updated 03/01/24 @ 06:46 by Shiela Garcia PA-C) Hx of colonoscopy History of ankle surgery (2001) Social History household members: spouse and children Smoking Status: Never smoker alcohol intake: current Discharge Assessment & Plan Assessment and Plan Assessment: Stable status post right RIVERA Plan of Treatment: 1) Plan to discharge to home today with . 2) Continue multimodal pain management with ice to the hip for additional pain control. Patient has postop pain medications at already 3) ASA b.i.d. for DVT prophylaxis. 4) Start outpatient physical therapy to work on range of motion and mobility. 5) Keep dressing intact, clean, dry until 2 week postop appointment. No soaking the incision site in pools or tubs. No topical ointments or creams to the incision site. 6) Follow up at [facility] orth[facility]ics in 2 weeks for a postop appointment and wound check. All patient's questions were answered, they demonstrates understanding and are in agreement with the plan. Call our office if any questions or concerns arise. Discharge Plan Discharge Plan Patient Disposition: Home Discharge orders & Medications Discharge Orders: Discharge (Order); Ordered 03/02/24 Ordered By: Romelia Rojas Prescriptions: New acetaminophen 325 mg Tablet 650 mg PO Q6H PRN (Reason: Fever/Mild Pain (1-3)) Qty: 90 0RF aspirin 81 mg Tablet,Delayed Release (Dr/Ec) 81 mg PO BID Qty: 90 0RF docusate sodium 100 mg Capsule 100 mg PO BID Qty: 60 0RF oxycodone 5 mg Tablet 5 mg PO Q4-6H PRN (Reason: Pain, Moderate (4-6)) Qty: 30 0RF Continued losartan 50 mg Tablet 50 mg PO QNOON chlorthalidone 25 mg Tablet 25 mg PO QNOON fexofenadine 180 mg Tablet 180 mg PO DAILY meloxicam 7.5 mg tablet 7.5 mg PO BID lidocaine 5 % adhesive patch,medicated 1 patch topical DAILY diclofenac sodium 1 % gel topical Follow up/Referrals: Roque Will DO [Primary Care Provider] - Bee Lake MD [Physician] - (Follow up at [facility] as scheduled in 2 weeks. CRISTAL Mojica 03/15/2024 at 1:00 p.m. ) Diet/Activity/Treatments Diet: Diet as Tolerated Activity: Weightbearing as tolerated, maintain posterior hip precautions Cold/Heat Therapy: Ice to the hip for additional pain control Skin/Wound/Dressing Care Report to your healthcare provider any signs of infection, such as:: chills, fever, night sweats, unusual drainage and unusual redness Dressing: Keep dressing intact, clean and dry until 2 week post-op appointment. No soaking the incision site in pools or tubs. No topical ointments or creams to the incision site. Visit Report/Discharge Packet Instructions: DI for Hip Replacement, DI for Prescription Opioid Use Stand Alone Forms: Patient Portal/API Discharge Data Primary Care Provider: Roque Will Attending Provider: Bee Lake
[2024-03-02] MEDS: LOSARTAN 50 MG TABLET PO (13:18)
--- NOTE | 2024-03-02 13:43 | CM.DPNOTE ---
DC Note Discharge home w/family today; cleared by therapies for this plan. No needs identified by this CM team. LUISA
--- NOTE | 2024-03-02 17:30 | PC.NURSE ---
Pt is dressed and ready for discharge home with Spouse. IV has been removed. Pt has showered. SHERI dsg is intact and blinking green. Went over d/c instructions with Pt and Spouse-discussed d/c meds, time of last dose, reviewed stroke education, posterior hip precautions, s/s of infection, discussed not exceeding 3000mg of Acetaminophen in 24 hours, drinking plenty of fluids to prevent constipation or dehydration, SHERI dsg care, and follow up. Pt and Spouse denied further questions and Pt will be taken out via w/c by UROLOGY PHYSICIAN to POV with Spouse and all belongings.
== END 2024-03-02 18:40 | disposition home or self-care (01) ==
LOC: OR 08:52 → AC 08:55
PROVIDERS: PCP Family Medicine; Referring Provider Orthopaedic Surgery; Visit Provider Orthopaedic Surgery
PROC: 0SR90JZ Replacement of Right Hip Joint with Synthetic Substitute, Open Approach (ICD-10-PCS; CPT 27130; principal; 2024-02-29 10:45)
DX: M16.11 Unilateral primary osteoarthritis, right hip (principal)
CPT/HCPCS: 27130; 36415; 72170; 73502; 85014; 85018; 97162; 97165; 97530; 97535; C1776; A9270; J0690; J1100; J2250; J2405; J2704; J3010